=== PATIENT | male | born 1965 | race Caucasian/White ===

== ENCOUNTER 2023-04-06 23:54 | Emergency (ER) | payer OTHER, SELFPAY ==
[2023-04-07 00:09] VITALS: BP 167/99; PULSE 84; RESP 20; TEMP 36.6; O2SAT 96; BMI 31.0
--- NOTE | 2023-04-07 01:29 | ED.MALEGU ---
HPI - Male Genitourinary General Chief complaint: Urogenital-Male Stated complaint: Work Inj Time Seen by Provider: 04/07/23 01:04 Source: patient Mode of arrival: ambulatory Limitations: no limitations History of Present Illness HPI Narrative: Patient apparently got laceration to the lower part of scrotum while sitting on a sharp narrow metal bar at work went to urgent care with regard 13 stitches came here as hematoma is increasing size with blood is still oozing no other inj Related Data Allergies Allergy/AdvReac Type Severity Reaction Status Date / Time No Known Allergies Allergy Verified 04/07/23 00:13 Review of Systems Review of Systems: Yes all other systems are reviewed and are negative PMFSH Social History Social History Advance Directives: No Advance Directives Information Provided: Yes Physical Exam Vital Signs: Vital Signs: Last Vital Signs Temp 97.9 F 04/07/23 03:25 Pulse 69 04/07/23 03:25 Resp 20 04/07/23 00:09 BP 142/96 H 04/07/23 03:25 Pulse Ox 97 04/07/23 03:25 O2 Del Method Room Air 04/07/23 03:25 BMI result Body Mass Index 31.0 Appearance: Alert. Oriented X3. No acute distress. Eyes: PERRLA, No Nystagmus ENT: Pharynx normal. Oral Mucosa moist Neck: Normal inspection. Neck supple. CVS: Normal heart rate and rhythm. Pulses normal. Respiratory: No respiratory distress. Equal air entry bilateral, Abdomen: Soft and nontender. Bowel sounds are present, no mass palpable, no CVA tenderness Skin: Skin warm and dry. Normal skin color. Normal skin turgor. Extremities: No lower extremity edema. No calf tenderness : Large hematoma on the scrotum spreading all the way to the perineum area laceration to the scrotum status post stitches slightly oozing Neuro: Oriented X 3. : Male genitals images: 1. Laceration status post stitches 2. huge hematoma of the scrotum spreading to the perineal area Medications Administered Discontinued Medications Generic Name Dose Route Start Last Admin Trade Name Freq PRN Reason Stop Dose Admin Iohexol 85 ml 04/07/23 02:03 04/07/23 02:04 Iohexol 350 Mg/Ml 100 Ml Infus..Btl IV 04/07/23 02:04 85 ml ONCE ONE Administration Medical Decision Making Medical Decision Making MDM Narrative: Patient's scrotal hematomas status post from CT scan showed fluid collection but no signs of testicle injuries or deeper injuries oozing from the laceration site him. Will discharge patient home rest to follow with urologist Differential Diagnosis Differential Diagnoses: The differential diagnosis associated with the presentation includes Scrotal hematoma/perineal hematoma/deeper vascular injuries/testicular injury Radiology Impression Discussion of test interpretation with radiology: I have reviewed the radiologist's reading. Radiologist Impression: [address] [address] [address] Scan Report Signed Patient: Adeel Damico MR#: [id number] : 1965 Acct:[id number] Age/Sex: 57 / M ADM Date: 04/07/23 Loc: .ED Attending Dr: Ordering Physician: Toni Lucio MD Date of Service: 04/07/23 Procedure(s): CT pelvis w IV con Accession Number(s): [id number] cc: Physician,Unknown ; Toni Lucio MD~ EXAMINATION: CT PELVIS WITH CONTRAST CLINICAL INFORMATION: Trauma. COMPARISON: None available. TECHNIQUE: Helical scanning was performed with submillimeter collimation through the pelvis with the use of oral contrast and during bolus intravenous injection of 100 mL of Omnipaque 350 intravenous contrast. Sagittal and coronal multiplanar 2-D reconstructions were obtained. This CT examination was performed using dose optimization techniques as appropriate, variously including the following: *Automated exposure control *Adjustment of mA and/or kV according to patient size (this includes techniques or standardized protocols for targeted exams where dose is matched to indication/reason for exam; i.e. extremities or head) *Use of iterative reconstruction technique DLP: 312 mGy-cm FINDINGS: PELVIS: There is no pelvic mass. The urinary bladder is normal in appearance. The visualized bowel is unremarkable. There is no free fluid within the pelvis. OSSEOUS STRUCTURES: There is mild bilateral hip degenerative change. There is severe L4-L5 disc degenerative change with bilateral L4 spondylolysis and grade 1 anterolisthesis. SOFT TISSUES: There is significant scrotal swelling with areas of increased density posteriorly. CT/CT pelvis w IV con IMPRESSION: Scrotal swelling/hemorrhage. No acute intrapelvic process. Bilateral L4 spondylolysis with severe L4-L5 disc degenerative change and grade 1 anterolisthesis. Discharge Plan Discharge Clinical Impression: Hematoma of scrotum Patient Disposition: Home, Self-Care Instructions: Hematoma (ED) Additional Instructions: Your have you have hematoma of the scrotum which should get better with time Follow-up with urologist if worsening of the hematoma pain Suture removal in 10 days as advised Referrals: Igor Haney MD [Physician] - 1 week Interventions: ED Discharge Assessment Last Done: 04/07/23 03:49 Discharge Date/Time: 04/07/23 03:50
[2023-04-07 03:25] VITALS: BP 142/96; PULSE 69; TEMP 36.6; O2SAT 97
== END 2023-04-07 03:50 | disposition home or self-care (01) ==
PROVIDERS: Emergency Provider Internal Medicine
DX: S30.22XA Contusion of scrotum and testes, initial encounter (principal); W26.8XXA Contact with other sharp object(s), not elsewhere classified, initial encounter; Y93.89 Activity, other specified; Y92.59 Other trade areas as the place of occurrence of the external cause; Y99.0 Civilian activity done for income or pay
CPT/HCPCS: 72193; 76870; 99284; Q9967